=== PATIENT | male | born 1975 | race Two or more races ===

== ENCOUNTER 2017-01-10 22:05 | Emergency (ER) | payer SELFPAY ==
[2017-01-10 23:04] LABS: APPEARANCE CLEAR (CLEAR); BILIRUBIN NEGATIVE (NEGATIVE); COLOR STRAW (YELLOW); GLUCOSE NEGATIVE (NEGATIVE); KETONE MODERATE mg/dL (NEGATIVE); NITRITE NEGATIVE (NEGATIVE); PROTEIN NEGATIVE (NEGATIVE); SPECIFIC GRAVITY 1.015 (1.005-1.020)
[2017-01-10 23:05] LABS: BASOPHILS 0.1 % (0-2); EOSINOPHILS 0.1 % (0-7); HEMATOCRIT 45.1 % (42.0-54.0); HEMOGLOBIN 15.7 g/dL (13.5-17.5); IMMATURE GRANULOCYTES 0.3 % (0-5); LYMPHOCYTES 10.8 % (15-50); MCH 32.3 pg (26.0-34.0); MCHC 34.8 g/dL (31.0-37.0); MCV 92.8 fL (80.0-100.0); MEAN PLATELET VOLUME 10.2 fL (7.4-10.4); MONOCYTES 12.1 % (2-11); NEUTROPHILS 76.6 % (40-80); PLATELET COUNT 261 10x3/uL (130-400); RBC 4.86 10x6/uL (4.20-6.10); RDW 11.5 % (11.5-14.5); WBC 9.5 10x3/uL (4.8-10.8)
[2017-01-10 23:19] LABS: ALBUMIN 3.6 g/dL (3.4-5.0); ALKALINE PHOSPHATASE 129 U/L (46-116); ALT (SGPT) 70 U/L (10-68); CALC OSMOLALITY 273 mosm/kg (275-300); CALCIUM 8.9 mg/dL (8.5-10.1); CARBON DIOXIDE 26.7 mmol/L (21.0-32.0); CHLORIDE - SERUM 97 mmol/L (98-107); CREATININE - SERUM 1.1 mg/dL (0.6-1.3); GLUCOSE 101 mg/dL (74-106); POTASSIUM - SERUM 3.7 mmol/L (3.5-5.1); SODIUM 137 mmol/L (136-145); UREA NITROGEN 13 mg/dL (7-18); eGFR NON AFRICAN AMERICAN 78 mL/min (90-120)
== END 2017-01-11 | disposition home or self-care (01) ==
LOC: D.ER 22:05
PROVIDERS: Family Medicine
DX: J18.9 Pneumonia, unspecified organism (principal)